=== PATIENT | male | born 1940 | race Caucasian/White ===

== ENCOUNTER 2020-03-19 08:34 | Emergency (ER) | payer BC, MEDICARE ==
[2020-03-19 09:02] VITALS: BP 174/61; PULSE 56
[2020-03-19] MEDS ORDERED: Acetaminophen/oxyCODONE 325-5 MG Tab PO STA (09:05)
--- NOTE | 2020-03-19 09:08 | EDM.PDOC ---
ED HPI GENERAL MEDICAL PROBLEM - General Chief Complaint: Lower Extremity Injury/Pain Stated Complaint: LEFT KNEE PAIN Time Seen by Provider: 03/19/20 09:00 Source of Information: Reports: Patient, Old Records History Limitations: Reports: Other (poor historian) - History of Present Illness INITIAL COMMENTS - FREE TEXT/NARRATIVE: 80 yo male presents for acute on chronic knee pain, left worse than right. No recent injuries. Says he got a cortisone injection in both knees in the past when Dr. Vlaencia made an appt for him to have this in the ER. Did not call Erik today. A review of old records does not reveal any ER injections records that we could locate. His daughter brought him today. Pradeep says Dr. Valencia does not do knee injections. Onset: Today (worse today, chronic condition) Duration: Chronic Location: Reports: Lower Extremity, Left (L worse than R today), Lower Extremity , Right Quality: Reports: Ache (at rest), Sharp (with movement/weight bearing) Severity: Moderate Improves with: Reports: Rest Worsens with: Reports: Movement (weight bearing) Context: Reports: Other (see HPI) Associated Symptoms: Reports: No Other Symptoms Treatments CUSTOMS EXAMINER: Reports: NSAIDS (Celebrex) Left Knee Pain Score (Numeric/FACES): 5 - Related Data Allergies Allergy/AdvReac Type Severity Reaction Status Date / Time No Known Allergies Allergy Verified 03/19/20 09:05 Home Meds: Home Meds Celecoxib 200 mg PO BID 11/21/16 [History] Past Medical History - Past Health History Medical/Surgical History: Denies Medical/Surgical History HEENT History: Reports: Hard of Hearing, Impaired Vision Cardiovascular History: Reports: Heart Failure Musculoskeletal History: Reports: Arthritis, Other (See Below) Other Musculoskeletal History: chronic knee pain - Infectious Disease History Infectious Disease History: Reports: C-Difficile, Measles - Past Surgical History Musculoskeletal Surgical History: Reports: Amputation, Other (See Below) Social & Family History - Family History Cardiac: Reports: Heart Failure - Caffeine Use Caffeine Use: Reports: Coffee Review of Systems - Review of Systems Review Of Systems: See Below Constitutional: Reports: No Symptoms Musculoskeletal: Reports: Joint Pain (knees). Denies: Joint Swelling Skin: Reports: No Symptoms Neurological: Reports: No Symptoms ED EXAM, GENERAL - Physical Exam Exam: See Below Exam Limited By: No Limitations General Appearance: Alert, WD/WN, No Apparent Distress Extremities: Normal Inspection, No Pedal Edema, Other (no effusion). No: Pedal Edema, Limited Range of Motion, Increased Warmth, Redness Neurological: Alert, Oriented, CN II-XII Intact, Normal Cognition, No Motor/ Sensory Deficits Psychiatric: Normal Affect, Normal Mood Skin Exam: Warm, Dry, Intact, Normal Color, No Rash Course - Vital Signs Last Recorded V/S: Last Vital Signs Temp 36.1 C 03/19/20 09:10 Pulse 56 L 03/19/20 09:10 Resp 18 03/19/20 09:10 BP 174/61 H 03/19/20 09:10 Pulse Ox 97 03/19/20 09:10 - Orders/Labs/Meds Meds: Medications Discontinued Medications Generic Name Dose Route Start Last Admin Trade Name Gaby PRN Reason Stop Dose Admin Oxycodone/Acetaminophen 1 tab 03/19/20 09:05 03/19/20 09:11 Percocet 325-5 Mg PO 03/19/20 09:06 1 tab ONETIME STA Administration - Re-Assessments/Exams Free Text/Narrative Re-Assessment/Exam: 03/19/20 09:36 Pain is less after the Percocet tablet. Departure - Departure Time of Disposition: 09:45 Disposition: Home, Self-Care 01 Condition: Good Clinical Impression: Arthritis of both knees - Discharge Information *PRESCRIPTION DRUG MONITORING PROGRAM REVIEWED*: No *COPY OF PRESCRIPTION DRUG MONITORING REPORT IN PATIENT JOANA: No Instructions: Arthritis, [id number] Referrals: Burke Valencia MD [Primary Care Provider] - Forms: ED Department Discharge Additional Instructions: Continue your Celebrex as before. Add either acetaminophen up to 1000 mg every 6 hrs OR [place] for added relief. Follow up with Dr. Brown next week for further evaluation and treatment. Sepsis Event Note - Focused Exam Vital Signs: Vital Signs Temp Pulse Resp BP Pulse Ox 03/19/20 09:10 36.1 C 56 L 18 174/61 H 97 03/19/20 08:59 56 L 18 174/61 H 97 Date Exam was Performed: 03/19/20 Time Exam was Performed: 09:30
== END 2020-03-19 10:08 | disposition home or self-care (01) ==
LOC: JP.ED 08:34
DX: M17.0 Bilateral primary osteoarthritis of knee (principal); I50.9 Heart failure, unspecified; Z79.899 Other long term (current) drug therapy
CPT/HCPCS: 99283; A9270

== ENCOUNTER 2023-07-18 05:50 | Emergency (ER) | payer MEDICARE ==
[2023-07-18 06:59] LABS: BASOPHILS ABSOLUTE AUTO 0.08 K/uL (0.00-0.10); BASOPHILS PERCENT AUTO 0.9 % (0.1-1.3); EOSINOPHILS PERCENT AUTO 4.3 % (0.0-5.4); HEMOGLOBIN 13.8 g/dL (12.9-16.9); IMMATURE GRAN PERCENT AUTO 0.2 % (0.0-0.7); LYMPHOCYTES ABSOLUTE AUTO 1.33 K/uL (0.8-3.3); LYMPHOCYTES PERCENT AUTO 14.4 % (11.4-47.7); MEAN CORPUSCULAR HEMOGLOBIN 30.3 pg (31.6-35.5); MEAN CORPUSCULAR HGB CONC 32.9 g/dL (31.6-35.5); MEAN CORPUSCULAR VOLUME 92.1 fL (81.4-99.0); MONOCYTES PERCENT AUTO 11.9 % (3.3-12.6); NEUTROPHILS ABSOLUTE AUTO 6.29 K/uL (1.0-7.6); NEUTROPHILS PERCENT AUTO 68.3 % (40.0-78.1); PLATELET COUNT,PLT 263 K/uL (130-375); RED BLOOD CELL COUNT 4.56 M/uL (4.14-5.76); WHITE BLOOD CELL COUNT,WBC 9.2 K/uL (3.2-11.0)
[2023-07-18 07:01] LABS: IMMATURE GRAN ABSOLUTE AUTO 0.02 K/uL (0.00-0.23)
[2023-07-18 07:16] VITALS: PULSE 57
[2023-07-18 07:26] LABS: ANION GAP 16.2 mmol/L (5.0-14.0); CALCIUM 8.8 mg/dL (8.5-10.1); CREATININE 1.2 mg/dL (0.8-1.3); EST CRCL DRUG DOSING (CG) 44.33 mL/min; POTASSIUM,K 4.2 mmol/L (3.6-5.2); TROPONIN I HIGH SENSITIVITY 17.2 pg/mL (<=60.3)
[2023-07-18] MEDS ORDERED: Furosemide 40 MG/4 ML VIAL IM ONE (08:05)
[2023-07-18] MEDS ORDERED: Triamcinolone Acetonide 40 MG/ML 1 ML SDV IM ONE (08:06)
[2023-07-18 08:27] VITALS: BP 140/68
== END 2023-07-18 08:48 | disposition home or self-care (01) ==
LOC: JP.ED 05:50
DX: J30.9 Allergic rhinitis, unspecified (principal); E87.70 Fluid overload, unspecified; I25.2 Old myocardial infarction; Z79.899 Other long term (current) drug therapy
CPT/HCPCS: 36415; 71046; 80048; 83880; 84484; 85025; 93005; 96372; 99285; J1940; J3301; 93010; 99283